=== PATIENT | female | born 2000 | race African-American/Black ===

== ENCOUNTER 2020-11-25 00:03 | Inpatient (IN) | payer MEDICAID ==
[~2020-11-25] VITALS: Ht 154.9 cm; Wt 142.6 kg
[~2020-11-25 00:03] MED LIST: BUPR-93 PO; FLUT1DIS6 IH; METF-960 PO; PRED20 PO
[2020-11-25] MEDS ORDERED: SODIUM CHLORIDE 0.9% 1,000 ML IV ONE (00:45)
[2020-11-25 01:30] LABS: BASOPHILS % (AUTO) 0.4 % (0.0-2.0); EOSINOPHILS % (AUTO) 1.2 % (1.0-6.0); HEMATOCRIT 35.9 % (36-46); HEMOGLOBIN 11.4 g/dL (12.0-16.0); LYMPHOCYTES % (AUTO) 26.7 % (22.0-44.0); MEAN CORPUSCULAR HEMOGLOBIN 25.3 pg (26.0-34.0); MEAN CORPUSCULAR HGB CONC 31.8 G/dL (31.0-37.0); MEAN CORPUSCULAR VOLUME 79 fL (80-100); MONOCYTES # (AUTO) 0.6 K/uL (0.1-1.0); MONOCYTES % (AUTO) 8.2 % (2.0-9.0); NEUTROPHILS # (AUTO) 4.7 K/uL (1.8-7.7); NEUTROPHILS % (AUTO) 63.5 % (40.0-70.0); PLATELET COUNT (AUTO) 378 K/uL (150-450); RED BLOOD CELL COUNT(AUTO) 4.52 MIL/uL (4.00-5.20); RED CELL DISTRIBUTION WIDTH 15.2 % (11.5-14.5)
[2020-11-25 01:34] LABS: COVID AG,FIA SOURCE NASOPHARYNGEAL
[2020-11-25 01:46] LABS: ANION GAP 8 mmol/L (8-16); CALCIUM, TOTAL 9.2 mg/dL (8.8-10.5); CARBON DIOXIDE 29 mmol/L (22-29); CHLORIDE 100 mmol/L (98-107); CREATININE 0.85 mg/dL (0.60-1.30); GLOMERULAR FILTR. RATE CALC > 60 mL/min (>60); GLUCOSE,RANDOM 121 mg/dL (70-110); POTASSIUM 3.4 mmol/L (3.5-5.1); SODIUM SERUM 137 mmol/L (136-145); UREA NITROGEN, BLOOD 9 mg/dL (7-18)
[2020-11-25 01:59] LABS: ALANINE AMINOTRANSFERASE 27 U/L (12-78); ALBUMIN 3.6 g/dL (3.4-5.0); ALKALINE PHOSPHATASE 75 U/L (46-116); ASPARTATE AMINOTRANSFERASE 15 U/L (15-37); BILIRUBIN,TOTAL 0.6 mg/dL (0.1-1.0); HCG,QUANTITATIVE 1 mIU/mL (0-6); TOTAL PROTEIN, SERUM 7.8 g/dL (6.4-8.2)
[2020-11-25 02:01] LABS: ACETAMINOPHEN < 2 mcg/mL (10-30)
[2020-11-25 02:23] LABS: SALICYLATE < 2.8 mg/dL (2.8-20.0)
[2020-11-25 05:16] LABS: AMPHET/METH SCREEN,URINE NEGATIVE (NEGATIVE); BARBITURATE SCREEN, URINE NEGATIVE (NEGATIVE); BENZODIAZEPINES SCREEN,URINE POSITIVE (NEGATIVE); CANNABINOID SCREEN,URINE NEGATIVE (NEGATIVE); COCAINE SCREEN,URINE NEGATIVE (NEGATIVE); METHADONE SCREEN, URINE NEGATIVE (NEGATIVE); OPIATE SCREEN,URINE NEGATIVE (NEGATIVE)
[2020-11-25 05:18] LABS: PHENCYCLIDINE SCREEN,URINE NEGATIVE (NEGATIVE)
[2020-11-25] MEDS ORDERED: ZOLPIDEM TARTRATE 10 MG TABLET PO PRN (09:30)
[2020-11-25] MEDS ORDERED: LORazepam 2 MG TABLET PO PRN (09:30)
[2020-11-25] MEDS ORDERED: HALOPERIDOL 5 MG TABLET PO PRN (09:30)
[2020-11-25 11:05] VITALS: BP 145/88
[2020-11-25] MEDS ORDERED: POTASSIUM CHLORIDE 20 MEQ ER TABLET PO ONE (12:15)
[2020-11-25] MEDS: FLUTICASONE/VILANTEROL 200-25 MCG/INH INHALER [14] IH SCH (13:19)
[2020-11-25 14:20] LABS: GLUCOMETER DEV NAME(LOC) 3E.I 2; GLUCOSE,POINT OF CARE 66 MG/DL (70-110)
[2020-11-25] MEDS ORDERED: SODIUM CHLORIDE 1 GM TABLET PO SCH (17:00)
[2020-11-25] MEDS ORDERED: MetFORMIN HCL 500 MG TABLET PO SCH ×2 (17:30)
[2020-11-25 17:33] LABS: GLUCOMETER DEV NAME(LOC) 3E.I 2; GLUCOSE,POINT OF CARE 67 MG/DL (70-110)
[2020-11-25 18:09] VITALS: BP 152/92
[2020-11-25 18:33] LABS: GLUCOMETER DEV NAME(LOC) 3E.I 2; GLUCOSE,POINT OF CARE 60 MG/DL (70-110)
[2020-11-25 19:16] LABS: GLUCOMETER DEV NAME(LOC) 3E.I 2; GLUCOSE,POINT OF CARE 90 MG/DL (70-110)
[2020-11-26 05:54] LABS: GLUCOMETER DEV NAME(LOC) 3E.I 2; GLUCOSE,POINT OF CARE 86 MG/DL (70-110)
[2020-11-26] MEDS ORDERED: ALBUTEROL SULFATE HFA 90 MCG/PUFF 8 GM INHALER IH PRN (07:00)
[2020-11-26] MEDS ORDERED: NICOTINE 14 MG/24 HOUR PATCH TD PRN (07:00)
[2020-11-26] MEDS ORDERED: ACETAMINOPHEN 325 MG TABLET PO PRN (07:00)
[2020-11-26] MEDS ORDERED: CloNIDine HCL 0.1 MG TABLET PO PRN (07:00)
[2020-11-26] MEDS ORDERED: GuaiFENesin/D-METHORPHAN [SUGAR-FREE] 200-20MG/10 ML SYRUP UDCUP PO PRN (07:00)
[2020-11-26] MEDS ORDERED: LOPERAMIDE HCL 2 MG CAPSULE PO PRN (07:00)
[2020-11-26] MEDS ORDERED: PETROLATUM,WHITE 28 GM JELLY TP PRN (07:00)
[2020-11-26] MEDS ORDERED: MAGNESIUM HYDROXIDE SUSPENSION 30 ML UDCUP PO PRN (07:00)
[2020-11-26] MEDS ORDERED: DOCUSATE SODIUM 100 MG CAPSULE PO PRN (07:00)
[2020-11-26] MEDS ORDERED: ONDANSETRON HCL 4 MG TABLET PO PRN (07:00)
[2020-11-26 09:06] VITALS: BP 127/91
[2020-11-26] MEDS: FLUTICASONE/VILANTEROL 200-25 MCG/INH INHALER [14] IH SCH (09:11)
[2020-11-26] MEDS: PredniSONE 20 MG TABLET PO SCH (09:11)
[2020-11-26] MEDS: BuPROPion HCL XL 150 MG ER TABLET PO SCH (12:20)
[2020-11-26 16:00] VITALS: BP 117/85
[2020-11-26] MEDS: GABAPENTIN 300 MG CAPSULE PO SCH (16:03)
[2020-11-26 17:25] LABS: GLUCOMETER DEV NAME(LOC) 3E.I 2; GLUCOSE,POINT OF CARE 112 MG/DL (70-110)
[2020-11-27 05:37] VITALS: BP 137/82
[2020-11-27 05:48] LABS: GLUCOMETER DEV NAME(LOC) 3E.I 2; GLUCOSE,POINT OF CARE 94 MG/DL (70-110)
[2020-11-27 07:16] LABS: HEMOGLOBIN A1C 6.2 % (3.8-5.6)
[2020-11-27 07:22] LABS: CHOL/HDL RATIO 3.2 (3.9-5.7)
[2020-11-27] MEDS: GABAPENTIN 300 MG CAPSULE PO SCH ×2 (08:04→17:00)
[2020-11-27] MEDS: PredniSONE 20 MG TABLET PO SCH (08:04)
[2020-11-27] MEDS: BuPROPion HCL XL 150 MG ER TABLET PO SCH (08:04)
[2020-11-27] MEDS: FLUTICASONE/VILANTEROL 200-25 MCG/INH INHALER [14] IH SCH (08:05)
[2020-11-27 08:53] VITALS: BP 131/68
[2020-11-27] MEDS: MAG HYDROX/AL HYDROX/SIMETH ES 30 ML SUSPENSION UDCUP PO PRN (22:59)
[2020-11-28 06:42] LABS: GLUCOMETER DEV NAME(LOC) 3E.I 2; GLUCOSE,POINT OF CARE 93 MG/DL (70-110)
[2020-11-28 08:51] VITALS: BP 129/67
[2020-11-28] MEDS: GABAPENTIN 300 MG CAPSULE PO SCH ×2 (09:00→16:39)
[2020-11-28] MEDS: BuPROPion HCL XL 150 MG ER TABLET PO SCH (09:00)
[2020-11-28] MEDS: FLUTICASONE/VILANTEROL 200-25 MCG/INH INHALER [14] IH SCH (09:00)
[2020-11-28] MEDS: PredniSONE 20 MG TABLET PO SCH (09:00)
[2020-11-28] MEDS: IBUPROFEN 400 MG TABLET PO PRN (10:02)
[2020-11-28 16:30] VITALS: BP 124/70
[2020-11-29] MEDS: BuPROPion HCL XL 150 MG ER TABLET PO SCH (08:03)
[2020-11-29] MEDS: GABAPENTIN 300 MG CAPSULE PO SCH ×2 (08:03→16:10)
[2020-11-29] MEDS: PredniSONE 20 MG TABLET PO SCH (08:03)
[2020-11-29] MEDS: FLUTICASONE/VILANTEROL 200-25 MCG/INH INHALER [14] IH SCH (08:04)
[2020-11-29] MEDS: IBUPROFEN 400 MG TABLET PO PRN (08:04)
[2020-11-29 08:07] VITALS: BP 104/65
[2020-11-29 09:04] VITALS: BP 104/68
[2020-11-29] MEDS: MAG HYDROX/AL HYDROX/SIMETH ES 30 ML SUSPENSION UDCUP PO PRN (09:42)
[2020-11-29 16:14] VITALS: BP 122/76
[2020-11-29 16:35] LABS: GLUCOMETER DEV NAME(LOC) 3E.C; GLUCOSE,POINT OF CARE 127 MG/DL (70-110)
[2020-11-30] VITALS (8 sets, daily range): BP systolic 102–122; BP diastolic 52–72
[2020-11-30 06:59] LABS: GLUCOMETER DEV NAME(LOC) 3E.C; GLUCOSE,POINT OF CARE 102 MG/DL (70-110)
[2020-11-30] MEDS: PredniSONE 20 MG TABLET PO SCH (08:14)
[2020-11-30] MEDS: BuPROPion HCL XL 150 MG ER TABLET PO SCH (08:14)
[2020-11-30] MEDS: FLUTICASONE/VILANTEROL 200-25 MCG/INH INHALER [14] IH SCH (08:14)
[2020-11-30] MEDS: GABAPENTIN 300 MG CAPSULE PO SCH ×2 (08:14→17:26)
[2020-11-30] MEDS: IBUPROFEN 400 MG TABLET PO PRN (09:42)
[2020-11-30 17:39] LABS: GLUCOMETER DEV NAME(LOC) 3E.I 2; GLUCOSE,POINT OF CARE 138 MG/DL (70-110)
[2020-12-01 06:48] LABS: GLUCOMETER DEV NAME(LOC) 3E.I 2; GLUCOSE,POINT OF CARE 89 MG/DL (70-110)
[2020-12-01] MEDS: PredniSONE 20 MG TABLET PO SCH (08:14)
[2020-12-01] MEDS: FLUTICASONE/VILANTEROL 200-25 MCG/INH INHALER [14] IH SCH (08:14)
[2020-12-01] MEDS: BuPROPion HCL XL 150 MG ER TABLET PO SCH (08:14)
[2020-12-01] MEDS: GABAPENTIN 300 MG CAPSULE PO SCH (08:14)
[2020-12-01] MEDS ORDERED: PRED20 PO (14:29)
[2020-12-01] MEDS ORDERED: GABA-1181 PO (14:32)
[2020-12-01] MEDS ORDERED: FLUT1BLS IH (14:32)
== END 2020-12-01 16:05 | disposition home or self-care (01) | DRG 751 ==
LOC: EMS 00:04 → 3EI 09:18 → 3EC 11-28 16:40 → 3EI 11-30 14:25
PROVIDERS: ADMIT Psychiatry & Neurology Psychiatry; ATTEND Psychiatry & Neurology Psychiatry
DX: F33.3 Major depressive disorder, recurrent, severe with psychotic symptoms (principal); E87.6 Hypokalemia; D64.9 Anemia, unspecified; F41.0 Panic disorder [episodic paroxysmal anxiety]; J45.909 Unspecified asthma, uncomplicated; E11.9 Type 2 diabetes mellitus without complications; Z20.822 Contact with and (suspected) exposure to COVID-19; Z91.14 Patient's other noncompliance with medication regimen
CPT/HCPCS: 51702; 83036; 83735; 87426; 93005; 99291; A9575; G0480; G0481; J7030